=== PATIENT | male | born 1955 | race Asian ===

== ENCOUNTER 2025-03-06 07:33 | Inpatient (IN) | payer MEDICARE ==
[~2025-03-06] VITALS: Ht 165.1 cm; Wt 70.0 kg
--- NOTE | 2025-03-06 07:40 | Physician Documentation ---
History of Present Illness ~ Stated Complaint: HIGH BP Time Seen by MD: 07:38 OK to notify your PCP?: Yes Source: patient, RN/MD, EMS, RN notes reviewed, EMS notes reviewed Mode of Arrival: EMS Exam Limitations: no limitations HPI This patient has a history of high blood pressure. He has been doing well denies any recent travel no recent URIs no ear pain or tinnitus. Patient states he recently rolled his ankle and has been taking anti-inflammatories and has p retty much recovered. However he started having episodes of dizziness they would last about 15 minutes. He denied any shortness of breath palpitations or arrhythmias no chest pain or pressure. He states the episode seemed to last for about 15 minutes. Denies any recent fatigue or chest pain. 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 Did not feel well took an aspirin and called 911 where EKG was obtained showing a right bundle-branch block. Patient states he has never had any arrhythmias before and as far as he knows that is a new change. EMS arrived Accu-Chek was 105 and he was brought in for further workup and care. He denies any vertigo symptoms such as feeling drunk or on a boat his dizziness for more of a lightheadedness and elevated blood pressure. He is compliant with his medications denies any drugs or alcohol. Medication Reconciliation Allergies: Coded Allergies: No Known Allergies (Unverified , 03/06/25) Scheduled Cholecalciferol (Vitamin D), 2 TAB PO DAILY, (Reported) Febuxostat (Febuxostat), 1 TAB PO DAILY, (Reported) Losartan Potassium (Losartan Potassium), 1 TAB PO DAILY, (Reported) Rosuvastatin Calcium (Rosuvastatin Calcium), 1 TAB PO DAILY, (Reported) Vitamin B Complex (Vitamin B Complex), 1 CAP PO DAILY, (Reported) Past Medical History Past Medical History: High Cholesterol, Hypertension, Gout Past Surgical History: no surgical history Smoking Status: Never smoker Alcohol Use: None Review of Systems All Other Systems at this time: Reviewed and Negative ROS As stated above in the HPI, otherwise all systems are reviewed and negative. Physical Exam Vital Signs: RN Vital Signs have been reviewed: Yes Physical Exam General: The patient is well developed, well nourished, nontoxic appearing and is in no acute distress. Appears younger than stated age Skin: Yoder, warm and dry with no rashes. HEENT: Head was normocephalic and atraumatic. Eyes - pupils equal, round, reactive to light and accommodation. Extraocular movements were intact. Horizontal nystagmus was noted. Conjunctivae were nonicteric. The mouth and oropharynx were clear with moist mucous membranes. There were no pharyngeal exudates or erythema. Neck: Supple and nontender. There was no jugular venous distention, lymphadenopathy, thyromegaly or masses. Chest: Clear to auscultation bilaterally without wheezes, rales or rhonchi. No accessory muscle use. No dullness to percussion. Heart: Rate regular and rhythmic. S1, S2. No murmurs. Palpation of the chest wall was normal. No rubs or thrills. Abdomen: Soft, nontender and nondistended. Positive bowel sounds. No guarding or rebound. No hepatosplenomegaly or palpable masses. Extremities: No cyanosis, clubbing or edema. The patient moves all extremities. Pulses were equal and symmetric. Neurologic: Motor sensory grossly intact. Horizontal nystagmus was noted Psychologic: The patient was oriented to person, place and time. The patient demonstrated appropriate judgement and insight. Progress Progress Note 1030: Dr. Cortez the hospitalist kindly put in admission orders at this time. Results/Orders Reviewed/noted all lab results: Yes Results/Orders Orders - CRUZITO PEDRAZA MD Electrocardiogram (03/06/25 07:38) Chest,Single View (03/06/25 07:41) Saline Lock (03/06/25 07:41) Monitor (03/06/25 07:41) Page Hospitalist (03/06/25 10:03) Fill Out Med Reconciliation (03/06/25 10:03) Completed Orders - CRUZITO PEDRAZA MD Electrocardiogram (03/06/25 07:38) Hs Troponin I W Calculations (03/06/25 07:38) Hs Troponin I W Calculations (03/06/25 09:38) Hs Troponin I W Calculations (03/06/25 10:38) Cbc/Diff (03/06/25 07:41) MG (03/06/25 07:41) Chest,Single View (03/06/25 07:41) BMP (03/06/25 07:41) Pt Inr (03/06/25 07:41) PTT (03/06/25 07:41) ESR (03/06/25 07:41) C-Reactive Protein (03/06/25 07:41) Meclizine Tablets (Antivert Tablet) (03/06/25 07:45) Nitroglycerin 0.2mg/Hour Patch (Nitro-Du (03/06/25 07:55) PBNP (03/06/25 07:57) D-Dimer (03/06/25 07:57) Hgb A1c (03/06/25 07:57) Vital Signs 03/06/25 03/06/25 03/06/25 03/06/25 07:38 07:48 08:20 08:24 Temp 98.1 Pulse 72 67 73 Resp 16 18 13 10 B/P (MAP) 198/90 167/105 (125) 156/84 (108) Pulse Ox 100 98 98 03/06/25 09:49 Pulse 70 Resp 21 B/P (MAP) 148/85 (106) Pulse Ox 94 Laboratory Tests Test 03/06/25 07:57 03/06/25 10:05 White Blood Count 4.0 L Red Blood Count 4.60 L Hemoglobin 15.6 Hematocrit 44.8 Mean Corpuscular Volume 97.4 Mean Corpuscular Hemoglobin 33.9 H Mean Corpuscular Hemoglobin Concent 34.9 Red Cell Distribution Width 13.1 Platelet Count 175 Mean Platelet Volume 7.4 Neutrophils (%) (Auto) 63.8 Lymphocytes (%) (Auto) 27.5 Monocytes (%) (Auto) 6.1 Eosinophils (%) (Auto) 2.1 Basophils (%) (Auto) 0.5 Neutrophils # (Auto) 2.6 Lymphocytes # (Auto) 1.1 Monocytes # (Auto) 0.2 Eosinophils # (Auto) 0.1 Basophils # (Auto) 0.0 CBC Comment Erythrocyte Sedimentation Rate 8 Prothrombin Time 10.2 INR International Normalized Ratio 1.0 Activated Partial Thromboplast Time 27 D-Dimer 4.56 H D-Dimer Comment Coagulation Comments Sodium Level 138 Potassium Level 4.3 Chloride Level 105 Carbon Dioxide Level 28.4 Anion Gap 5 L Blood Urea Nitrogen 18 Creatinine 0.99 Estimated GFR/1.73 m2 75 BUN/Creatinine Ratio 18.2 Glucose Level 111 H Hemoglobin A1c 5.6 Calcium Level 9.2 Magnesium Level 2.2 Troponin I High Sensitivity 7 6 C-Reactive Protein 0.12 Pro-B-Type Natriuretic Peptide 54 Albumin 3.8 Chemistry Comments Troponin I High Sens Percent Delta 14 Troponin I Hi Sens Absolute Change -1 Re-Evaluation Re-Evaluation #1: Progress Patient presents with dizziness not quite vertigo symptoms with does have nystagmus. Pressure is a bit elevated. He has new EKG changes. Blood pressure is elevated. Patient received aspirin nitroglycerin. Cardiac workup was started. Patient was also given a dose of meclizine. However patient also had some vague symptoms possibly related to his heart. His blood pressure is elevated. He received nitroglycerin as well and later subcu heparin after he was admitted to the hospitalist service to rule out any cardiac etiology. Unstable angina is high in the differential. Laboratory was obtained and CBC was within normal limits sed rate eight lactic acid for the chemistry was within normal limits and chemistry was within normal limits. Troponin x3 were within normal limits. Nonspecific changes in the EKG were seen. Patient was then admitted for further workup and care. hall monitor interpretation shows normal sinus rhythm heart rate 70s, no ectopy, normal, my interpretation. Pulse oximetry monitor interpretation shows normal oxygenation at 99% room air, normal, my interpretation. Re-Evaluation #2: Re-Evaluation: Unchanged Progress The case was discussed with the family who was informed in the patients case and agreed to admit the patient. 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 Cruzito Pedraza Measurements Intervals [place] Rate: 65 P: 53 WI: 169 QRS: 34 QRSD: 135 T: -5 QT: 390 QTc: 406 Interpretive Statements Incomplete analysis due to missing data in precordial lead(s) Sinus rhythm Right bundle branch block Borderline ST elevation, lateral leads Missing lead(s): V3 Electronically Signed On 03-06-2025 8:05:[address] Cruzito Pedraza Please click the below link to view image of tracing. Chest X-Ray : Additional Comments CLINICAL INFORMATION: Chest pain. TECHNIQUE: Single AP portable chest radiograph was obtained. COMPARISON: None FINDINGS: Lungs: Low lung volumes with bibasilar atelectasis, left greater than right. Superimposed consolidation in the left lung base not excluded. Cardiac: Borderline mild cardiomegaly, may be partly due to portable AP techni que. Pulmonary vasculature: Prominence of the pulmonary vasculature. Mediastinum/sarah: Unremarkable. Bones: No acute osseous abnormality identified. Other: No other significant findings. IMPRESSION: 1. Borderline mild cardiomegaly and prominence of the pulmonary vasculature, may be due to a degree of pulmonary vascular congestion in the appropriate clinical setting. 2. Bibasilar atelectasis, left greater than right. Superimposed consolidation in the left lung base not excluded. Heart Score: Heart Score Response (Comments) Value History Slightly Suspicious 0 EKG Repolarization Disturb 1 Age >65 2 Risk Factors 1 or 2 risk factors 1 Troponin Normal limit 0 Total 4 Medical Decision Making Additional info obtained from: old records Differential Dx:Considerations: Include: anemia, CVA, dehydration, dysrhythmia, electrolyte imbalance, encephalopathy, labyrinthitis, Meniere's disease, myocardial infarction, pulmonary embolus, renal failure, TIA, vertigo central, vertigo peripheral, vestibular neuronitis, other Departure Time of Disposition: 10:30 Disposition: 09 ADMITTED INPATIENT Admitted to Inpatient Unit: yes, to hospitalist Admission Level of Care: PCU with Tele Impression: Primary Impression: Dizziness Additional Impression: Accelerated hypertension Condition: Fair Referrals: NO PRIMARY CARE PROVIDER (PCP) Education Educated: Patient Educated regarding: diagnosis Signature Scribe Signature: Scribed for Cruzito Pedraza MD by Len Day . 03/06/25 11:14 Attestation: The note accurately reflects work and decisions made by me.Cruzito Pedraza MD 03/06/25 07:40 CRUZITO PEDRAZA MD Mar 06, 2025 07:40 LEN FARRIS Mar 06, 2025 09:26
--- NOTE | 2025-03-06 07:42 | ELECTROCARDIOGRAPH REPORT ---
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 Rosalina Vidal Measurements Intervals Christmas Rate: 65 P: 53 OR: 169 QRS: 34 QRSD: 135 T: -5 QT: 390 QTc: 406 Interpretive Statements Incomplete analysis due to missing data in precordial lead(s) Sinus rhythm Right bundle branch block Borderline ST elevation, lateral leads Missing lead(s): V3 Electronically Signed On 03-06-2025 8:05:[address] Rosalina Vidal Please click the below link to view image of tracing.
--- NOTE | 2025-03-06 08:04 | RADIOLOGY REPORT ---
CLINICAL INFORMATION: Chest pain. TECHNIQUE: Single AP portable chest radiograph was obtained. COMPARISON: None FINDINGS: Lungs: Low lung volumes with bibasilar atelectasis, left greater than right. Superimposed consolidati on in the left lung base not excluded. Cardiac: Borderline mild cardiomegaly, may be partly due to portable AP technique. Pulmonary vasculature: Prominence of the pulmonary vasculature. Mediastinum/sarah: Unremarkable. Bones: No acute osseous abnormality identified. Other: No other significant findings. IMPRESSION: 1. Borderline mild cardiomegaly and prominence of the pulmonary vasculature, may be due to a degree o f pulmonary vascular congestion in the appropriate clinical setting. 2. Bibasilar atelectasis, left greater than right. Superimposed consolidation in the left lung base not excluded.
[2025-03-06 08:09] LABS: MEAN PLATELET VOLUME 7.4 FL (7.4-10.4); RED CELL DISTRIBUTION WIDTH 13.1 % (11.5-14.5)
[2025-03-06 08:17] LABS: CREATININE 0.99 MG/DL (0.60-1.10); TOTAL CARBON DIOXIDE 28.4 MMOL/L (24-32); eCRCL 61 ML/MIN; eGFR 75 ML/MIN
[2025-03-06 08:20] LABS: APTT 27 SECONDS (22-32); INR 1.0 INR
[2025-03-06 09:42] LABS: PRO BRAIN NATRIURETIC PEPTIDE 54 PG/ML (0-125)
--- NOTE | 2025-03-06 10:11 | HISTORY AND PHYSICAL ---
History & Physical Providers to Chief complaint, dizziness, lightheadedness, elevated blood pressure ~ History of Present Illness Reason for Admit\Complaint: As above History of Present Illness This patient , 69 years old gentleman, has a history of high blood pressure, uncontrolled history of a right bundle jennifer block, gout, cardiomegaly, dyslipidemia, presented today to emergency department chief complaint dizziness associated with lightheadedness and elevated blood pressure and Gait disorder, unbalanced,. He has been doing well denies any recent travel no recent URIs no ear pain or tinnitus. Patient states he recently rolled his ankle and has been taking anti-inflammatories and has pretty much recovered. However he started having episodes of dizziness they would last about 15 minutes. He denied any shortness of breath palpitations or arrhythmias no chest pain or pressure. He states the episode seemed to last for about 15 minutes. Denies any recent fatigue or chest pain. 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 Did not feel well took an aspirin and called 911 where EKG was obtained showing a right bundle-branch block. Patient states he has never had any arrhythmias before and as far as he knows that is a new change. EMS arrived Accu-Chek was 105 and he was brought in for further workup and care. He denies any vertigo symptoms such as feeling drunk or on a boat his dizziness for more of a lightheadedness and elevated blood pressure. He is compliant with his medications denies any drugs or alcohol. In emergency department he was evaluated by physician was diagnosed with dizziness hypertensive emergency, and decision was made to admit patient for further evaluation and treatment, no additional complaint or concern Allergies: Coded Allergies: No Known Allergies (Unverified , 03/06/25) Active prescriptions I reviewed reconciled Home Medications Pending Past Medical History Past Medical History As in HPI Past Surgical History Surgical History Comment Cholecystectomy Past Social History Social History Comment Deny illicit drug abuse tobacco alcohol use live with the family good social support Health Maintenance Health Maintenance As above ROS ROS Constitutional : no fever , no chills, or weakness. No diaphoresis. Allergic/Immunologic, no lymphadenopathy, no hives, no skin eruptions. Eyes, no recent visual changes, no eye pain, no photophobia. Ears, nose, mouth, throat, no sore throat, no nosebleed, no ear pain. Cardiovascular, no palpitations, skipped beats, chest pain, no peripheral edema, Respiratory, no dyspnea, orthopnea, cough, hemoptysis, chest wall pain. Gastrointestinal, no abdominal pain, nausea, vomiting, constipation or diarrhea. : no dysuria, hematuria, pelvic pain, urethral d/c. Endocrine, no polyuria, polydipsia, recent unintentional weight gain or loss. Hematologic/Lymphatic, no petechiae, no enlarged lymph nodes, no bone pain. Integumentary, no rash, no skin lesions, Musculoskeletal, no muscle aches, or pain, no muscle cramps, positive for Gait disorder, unbalanced Neurological, before lightheadedness, dizziness, no headache, no syncope, no paresthesia. Psychiatric, no delusions, visual hallucinations, or hearing hallucinations. ROS - in rest is as in HPI. Exam Vitals: Vital Signs Date Time Temp Pulse Resp B/P (MAP) Pulse Ox O2 Delivery O2 Flow Rate FiO2 03/06/25 09:49 70 21 148/85 (106) 94 03/06/25 07:38 98.1 Vital signs, stable ,afebrile. Pulse Oximetry reflects adequate oxygenation. BMI is 25, weight 70 kg General: well developed, well nourished. Awake , alert, and oriented x4, resting comfortably in the bed, in no acute distress . Skin: Warm, dry, no pallor, no rash or petechiae. HEENT: Atraumatic, normocephalic, EOMI, anicteric sclera B; pink conjunctiva; PERRLA, normal oropharynx, moist oral and nasal mucosa. Tympanic membrane , nose , throat clear. Neck: Trachea midline. Supple, full range of motion, no JVD, bruit , hepatojugular reflex , lymphadenopathy or masses, or other lesions Cardiac: Regular rhythm, regular rate no murmurs, rubs, or gallops. Normal S1 and S2, no S3 noticed. PMI is normal. Respiratory: Equal breath sounds bilaterally, no tachypnea; lungs clear to auscultation bilaterally, no wheezing ,rub or rales, or crackles. Chest wall is symmetric and without deformity. No signs of trauma. Chest wall is nontender. No signs of respiratory distress. Resonance is normal upon percussion bilaterally. Gastrointestinal: Abdomen symmetric, non-distended, soft, non-tender, normal bowel sounds x4 quadrant, normoactive, no hepatosplenomegaly , no masses , no bruit, no flank pain bilaterally. No voluntary guarding, rebound, or rigidity. No tenderness to percussion. No pulsatile masses. Equal femoral pulses. No Cummings's sign or McBurney point tenderness. Back; no CVA tenderness bilaterally, no deformities. Neck and back are without deformity as well. No tenderness noted on palpation of the spinous processes. Spinous processes are midline. Cervical, thoracic, and lumbar paraspinal muscles are not tender and are without spasm. : normal external genitalia, without lesions, swelling, masses or tenderness. Musculoskeletal: Extremities, normal range of motion, non-tender, muscle strength 5/5 x 4. Negative Homans signs bilaterally on lower extremity. Distal pulses full symmetrical, no clubbing, cyanosis , edema. Neurological: Speech is clear, alert, and oriented x 4. No motor or sensory deficit, deep tendon reflexes normal, cerebellar intact. Cranial nerves II-XII intact. Psych: Alert and or appropriate, normal affect. Vascular: Good distal pulses, which are equal x4; capillary refill less than 2 seconds. Lymphatic, no lymphadenopathy. Diagnostic Data Last Recorded Lab Results: 03/06/25 0757 03/06/25 0757 Diagnostic Data: Laboratory Tests Test 03/06/25 07:57 Prothrombin Time 10.2 SECONDS (9.0-12.0) INR International Normalized Ratio 1.0 INR Activated Partial Thromboplast Time 27 SECONDS (22-32) Coagulation Comments Advance Care Planning Advanced Care plannin - 30 Minutes Additional Plan Assessment Hypertensive emergency Dizziness associated with light-headedness Gait disorder, unbalanced Cardiomegaly associated with right bundle branch block Elevated D-dimer, rule out PE, DVT Leukopenia Dyslipidemia, history of gout, Plan Echocardiography pending V/Q test pending Ultrasound bilateral lower extremity pending PT evaluation and treatment Additional lab work pending IV fluids, keep patient well hydrated euvolemic Reconciled home medications DVT gastropathy prophylaxis addressed May need cardiology evaluation Sepsis Screening Reassessment Date: Mar 06, 2025 Date of Service: Mar 06, 2025 Billing Provider: MARIELENA STRONG MD Common Visit Codes: 36906-[id number] INP/OBS CARE (HIGH) Secondary Visit Codes: 06550-[id number] CARE PLAN 30 MINUTES MARIELENA STRONG MD Mar 06, 2025 10:11
[2025-03-06] MEDS ORDERED: magnesium hydroxide 30ml (MOM) UD suspension PO PRN (10:50)
[2025-03-06] MEDS ORDERED: HYDROcodone/acetaminophen 10/325mg tab PO PRN (10:50)
[2025-03-06] MEDS ORDERED: HYDROcodone/acetaminophen 5mg/325mg tablet PO PRN (10:50)
[2025-03-06] MEDS ORDERED: bisacodyl 10mg suppository rectal RC PRN (10:50)
[2025-03-06] MEDS ORDERED: potassium Cl 40MEQ/1/2NS 520ml 520 ML IV PRN (10:50)
[2025-03-06] MEDS ORDERED: mag hydrox/Alum hydrox/simeth 30ml oral suspension PO PRN (10:50)
[2025-03-06] MEDS ORDERED: potassium Cl 20 mEq SR tablet PO PRN ×2 (10:50)
[2025-03-06] MEDS ORDERED: ondansetron/PF 4mg/2ml inj IV PRN (10:50)
[2025-03-06] MEDS ORDERED: acetaminophen 650mg rectal suppository RC PRN (10:50)
[2025-03-06] MEDS ORDERED: ondansetron 4mg rapidly disintigrating tab PO PRN (10:50)
[2025-03-06] MEDS ORDERED: magnesium Cl slow-release 64mg tablet PO PRN (10:50)
[2025-03-06] MEDS ORDERED: magnesium sulf-water 2g/50mL 50 ML IV PRN (10:50)
[2025-03-06] MEDS ORDERED: magnesium sulf-water 4G/100mL 100 ML IV PRN (10:50)
--- NOTE | 2025-03-06 11:45 | RADIOLOGY REPORT ---
EXAM: CT CT HEAD INDICATION: Dizziness; ALOC TECHNIQUE: CT of the head without intravenous contrast. Radiation Dose : 1. Head: CT Dose: CTDI volume is 63 mGy. Dose-length product is 1132 mGy*cm The dose indicators for CT are the volume Computed Tomography (CT) Dose Index (CTDIvol) and the Dose Length Product (DLP), and are measured in units of mGy and mGy-cm, respectively. These indicators are not patient dose, but values generated from the CT scanner acquisition factors. The report includes radiation exposure data for exposures received during this examination. COMPARISON: None FINDINGS: There is no evidence of acute intracranial hemorrhage, extra-axial collection, mass effect, midline s hift, herniation or hydrocephalus. The ventricles, sulci and cisterns are age appropriate. The lynn-white differentiation is intact. The visualized paranasal sinuses and mastoid air cells are clear. The surrounding soft tissues and osseous structures are unremarkable. IMPRESSION: No acute intracranial abnormality. Radiation optimization: All CT scans at this facility use at least one of these dose optimization tyler hniques: automated exposure control mA and/or kV adjustment per patient size (includes targeted exam s where dose is matched to clinical indication) or iterative reconstruction.
[2025-03-06 11:49] LABS: LEUKOCYTE ESTERASE ,URINE NEGATIVE (Neg); NITRITES, URINE NEGATIVE (Neg); OCCULT BLOOD,URINE NEGATIVE (Neg)
[2025-03-06 11:52] LABS: UA COLLECTION TYPE URINAL
--- NOTE | 2025-03-06 12:22 | RADIOLOGY REPORT ---
Procedure: CT CT CHEST ABDOMEN PELVIS 03/06/2025 11:27 AM Indication: adrenal adenoma .. Comparison Study: None Technique: Axial images were obtained and reformatted in coronal and sagittal planes. All CT scans at this medical facility are performed using dose modulation techniques as appropriate to a performed e xam including the following: Automated exposure control was utilized; adjustment of the MA and/or KV according to patient size; and use of iterative reconstruction technique. CT Dose: CTDI volume is 11. 8 mGy. Dose-length product is 828 mGy*cm FINDINGS: Lower neck: Unremarkable. Cardiomediastinal: The heart is normal in size. Aorta is normal in caliber. No mediastinal lymphadeno haylee. Lungs: No focal pulmonary opacity. No pleural effusion. No pneumothorax. Hepatobiliary: Unremarkable. Gallbladder has been removed. Spleen: Unremarkable. Pancreas: Unremarkable. Adrenal Glands: Unremarkable. tract: The kidneys are normal in size bilaterally without hydronephrosis . 1 mm nonobstructive sto ne left kidney. Small left peripelvic cysts and bilateral lower pole cortical cysts. GI tract: The stomach is grossly normal in appearance. No evidence of small bowel obstruction. The la rge bowel is unremarkable. Appendix not seen Lymphatics: No mesenteric, retroperitoneal or periportal lymphadenopathy. Vasculature: The abdominal aorta is normal in in caliber. Pelvic Organs: Unremarkable. Bones/soft tissues: No acute abnormality. Other: None. IMPRESSION: 1. No acute abnormality in the chest, abdomen or pelvis. 2. No signs of adrenal adenoma on this exam 3. Incidental note made of tiny nonobstructive left renal stone and small bilateral cortical cysts
[2025-03-06 12:30] LABS: PHOSPHORUS 2.6 MG/DL (2.3-4.5)
[2025-03-06 12:49] LABS: URINE AMPHETAMINE SCREEN NEGATIVE (Neg); URINE BARBITUATE SCREEN NEGATIVE (Neg); URINE BENZODIAZEPINES SCREEN NEGATIVE (Neg); URINE CANNABINOID SCREEN NEGATIVE (Neg); URINE COCAINE SCREEN NEGATIVE (Neg); URINE METHADONE SCREEN NEGATIVE (Neg); URINE OPIATE SCREEN NEGATIVE (Neg); URINE PHENCYCLIDINE SCREEN NEGATIVE (Neg)
[2025-03-06 14:11] VITALS: BP 103/69; PULSE 78; RESP 12; TEMP 98.9; O2SAT 93
[2025-03-06] MEDS ORDERED: ROSU5TAB51 PO (15:55)
[2025-03-06] MEDS ORDERED: FEBU40TA6 PO (15:56)
[2025-03-06] MEDS ORDERED: LOSA50TA64 PO (15:59)
[2025-03-06] MEDS ORDERED: CHOL20004 PO (16:04)
[2025-03-06] MEDS ORDERED: VITA1CAP PO (16:05)
--- NOTE | 2025-03-06 17:09 | CARDIOLOGY REPORT ---
APPROVED REPORT EXAM: Comprehensive 2D, Doppler, and color-flow Echocardiogram. Patient Location: ED1 Blood Pressure: 148/85 mmHg Heart Rate: 68 bpm Rhythm: NSR Indications Hypertension RBBB No electro plater No previous echo 2D Dimensions LA Diam3.3 cm IVSd 1.1 (0.7-1.1cm) LVDd 4.2 cm PWd 1.1 (0.7-1.1cm) IVSs 1.5 (0.8-1.2cm) LVDs 2.6 (2.5-4.0cm) Aortic Root(2D) 3.5 cm PWs 1.6 (0.8-1.2cm) LVOT Diameter 2.13 (1.8-2.4cm) LVEF(%) 67.3 (>50%) IVC 13.01 mmFS (%) 37.0 % SV 52.8 ml CO 3.8 L/min M-Mode Dimensions MV EPSS 0.7 (<0.5cm) Aortic Valve AoV Peak Kosta. 134.7 cm/s AoV VTI 27.3 cm AO Peak GR. 7.3 mmHg AO Mean GR. 4 mmHg LVOT VTI 21.55 cm LVOT Peak Kosta. 124.3 cm/s ISHA(VTI)/BSA 2.81 cm2/m2 ISHA (VTI) 2.81 cm2 Mitral Valve MV E Velocity 52.2 cm/s MV Peak Gr. 1 mmHg MV DECEL TIME 216 ms MV A Velocity 63.3 cm/s MV PHT 68 ms E/A Ratio 0.8 MVA (PHT) 3.24 cm2 MV VMax52.9 cm/s TDI Medial E' P. V 7.27 cm/s E/Medial E' 7.2 Tricuspid Valve TR P. Velocity 240 cm/s RAP ESTIMATE 10 mmHg TR Peak Gr. 23 mmHg RVSP 33 mmHg Pulmonary Vein S1 Velocity 52.2 cm/s D2 Velocity 33.0 cm/s PVa Yrxduxio68.5 cm/s PVa [id number] msec LEFT VENTRICLE Normal LV size and wall thickness. Overall systolic function is normal. LVEF is 65%. RIGHT VENTRICLE RV appears mildly dilated with normal contractility. RVSP is estimated at 33 mmHG. ATRIA The left atrium size is normal. AORTIC VALVE Trileaflet AV appears sclerotic without stenosis. Trace insufficiency. MITRAL VALVE MV is thickened with mild annular thickening and no stenosis. Trace mitral regurgitation. TRICUSPID VALVE The tricuspid valve is normal in structure. Trace tricuspid regurgitation. PULMONIC VALVE The pulmonary valve is normal in structure. Mild pulmonic regurgitation. GREAT VESSELS The aortic root is normal in size. The IVC is normal in size and collapses >50% with inspiration. PERICARDIUM There is no pericardial effusion. Other Information Study Quality: Adequate
[2025-03-06 18:00] VITALS: BP 114/69; PULSE 70; RESP 14; TEMP 98; O2SAT 95
[2025-03-06] MEDS: K and/or MAG REPLACEMENT MC SCH (18:48)
[2025-03-06] MEDS: ringers solution, lacted 1,000 ML IV ONE (19:12)
[2025-03-06] MEDS: docusate sod 100mg capsule PO SCH (20:52)
[2025-03-06] MEDS: heparin, porcine 5000 units/ml vial SQ SCH (20:53)
[2025-03-06 22:00] VITALS: BP 104/62; PULSE 58; RESP 14; TEMP 97.2; O2SAT 100
[2025-03-07 04:59] LABS: MEAN PLATELET VOLUME 7.5 FL (7.4-10.4); RED CELL DISTRIBUTION WIDTH 13.1 % (11.5-14.5)
[2025-03-07 05:20] LABS: CHOL/HDL RATIO 3.9 (0.00-4.99); CREATININE 0.86 MG/DL (0.60-1.10); LDL CHOLESTEROL 84 MG/DL (50-100); TOTAL CARBON DIOXIDE 27.3 MMOL/L (24-32); eCRCL 71 ML/MIN; eGFR 88 ML/MIN
[2025-03-07 06:00] VITALS: BP 131/70; PULSE 58; RESP 15; TEMP 98; O2SAT 94
[2025-03-07 08:00] VITALS: RESP 15; O2SAT 94
[2025-03-07] MEDS: pantoprazole 40mg Tablet.DR PO SCH (08:40)
--- NOTE | 2025-03-07 08:50 | VASCULAR REPORT ---
VASC VL VENOUS HISTORY: dvt COMPARISON: None TECHNIQUE: Duplex doppler evaluation of the deep venous system of the lower extremity from the common femoral veins, superficial femoral vein, great saphenous vein, deep femoral vein, popliteal vein, an d calf veins, including color doppler and spectral/pulsed waveform analysis, was performed. FINDINGS: Right: - Common femoral vein: Compressible - Deep femoral vein: Compressible - Femoral vein: Compressible - Popliteal vein: Compressible - Posterior tibial vein: Waveforms present - Peroneal vein: Waveforms present - Other: Nothing Left: - Common femoral vein: Compressible - Deep femoral vein: Compressible - Femoral vein: Compressible - Popliteal vein: Compressible - Posterior tibial vein: Waveforms present - Peroneal vein: Waveforms present - Other: Nothing IMPRESSION: No right or left lower extremity deep venous thrombosis.
--- NOTE | 2025-03-07 11:56 | RADIOLOGY REPORT ---
CLINICAL INFORMATION: Lightheaded. Elevated D-dimer. TECHNIQUE: 42 mCi of aerosolized Tc99m DTPA was used for the ventilation portion of the exam. Territory Development Manager ior ventilation imaging was obtained. 5.9 mCi of technetium 99m MAA was used for the perfusion portio n of the exam. Imaging was obtained in multiple planes of projection. COMPARISON: Chest radiograph dated 03/06/2025. FINDINGS: Perfusion imaging shows no mismatched segmental or subsegmental segmental defects. Ventilation imaging shows no defects. There is normal washout. IMPRESSION: Normal exam. No evidence of pulmonary embolism.
[2025-03-07 14:24] VITALS: BP 124/77; PULSE 62; RESP 13; TEMP 98.6; O2SAT 96
--- NOTE | 2025-03-07 17:58 | PROGRESS NOTE ---
Daily Progress Note Providers to CC Still feels dizzy, improving,unbalanced gait is improving ~ Central Line/PICC still needed: No Oneill-Non Protocol Oneill Indications Met/Not Met: F/C Indications Not Met Antibiotic Timeout Antibiotic Ordered?: No MRSA Education MRSA Education Provided to pt: No Subjective As above Objective Vital Signs Date Time Temp Pulse Resp B/P (MAP) Pulse Ox O2 Delivery O2 Flow Rate FiO2 03/07/25 14:24 98.6 62 13 124/77 (93) 96 Room Air Vital signs, stable ,afebrile. Pulse Oximetry reflects adequate oxygenation. General: well developed, well nourished. Awake , alert, and oriented x4, resting comfortably in the bed, in no acute distress . Skin: Warm, dry, no pallor, no rash or petechiae. HEENT: Atraumatic, normocephalic, EOMI, anicteric sclera B; pink conjunctiva; PERRLA, normal oropharynx, moist oral and nasal mucosa. Tympanic membrane , nose , throat clear. Neck: Trachea midline. Supple, full range of motion, no JVD, bruit , hepatojugular reflex , lymphadenopathy or masses, or other lesions Cardiac: Regular rhythm, regular rate no murmurs, rubs, or gallops. Normal S1 and S2, no S3 noticed. PMI is normal. Respiratory: Equal breath sounds bilaterally, no tachypnea; lungs clear to auscultation bilaterally, no wheezing ,rub or rales, or crackles. Chest wall is symmetric and without deformity. No signs of trauma. Chest wall is nontender. No signs of respiratory distress. Resonance is normal upon percussion bilaterally. Gastrointestinal: Abdomen symmetric, non-distended, soft, non-tender, normal bowel sounds x4 quadrant, normoactive, no hepatosplenomegaly , no masses , no bruit, no flank pain bilaterally. No voluntary guarding, rebound, or rigidity. No tenderness to percussion. No pulsatile masses. Equal femoral pulses. No Cummings's sign or McBurney point tenderness. Back; no CVA tenderness bilaterally, no deformities. Neck and back are without deformity as well. No tenderness noted on palpation of the spinous processes. Spinous processes are midline. Cervical, thoracic, and lumbar paraspinal muscles are not tender and are without spasm. : normal external genitalia, without lesions, swelling, masses or tenderness. Musculoskeletal: Extremities, normal range of motion, non-tender, muscle strength 5/5 x 4. Negative Homans signs bilaterally on lower extremity. Distal pulses full symmetrical, no clubbing, cyanosis , edema. Neurological: Speech is clear, alert, and oriented x 4. Dizziness is improving, gait unbalanced, is improving, No motor or sensory deficit, deep tendon reflexes normal, cerebellar intact. Cranial nerves II-XII intact. Psych: Alert and or appropriate, normal affect. Vascular: Good distal pulses, which are equal x4; capillary refill less than 2 seconds. Lymphatic, no lymphadenopathy. Result Diagram: 03/07/2542803/07/25428 Coagulation Studies Laboratory Tests Test 03/06/25 07:57 Prothrombin Time 10.2 SECONDS (9.0-12.0) INR International Normalized Ratio 1.0 INR Activated Partial Thromboplast Time 27 SECONDS (22-32) D-Dimer 4.56 MG/L FEU (0-0.50) H D-Dimer Comment Coagulation Comments Problem\Assessment\Plan Assessment Hypertensive emergency Dizziness associated with light-headedness Gait disorder, unbalanced Cardiomegaly associated with right bundle branch block Elevated D-dimer, ruled out PE, DVT Leukopenia Dyslipidemia, history of gout, Plan Echocardiography completed MRI of the head pending V/Q completed Ultrasound bilateral lower extremity no DVT PT evaluation and treatment Additional lab work pending IV fluids, keep patient well hydrated euvolemic Reconciled home medications DVT gastropathy prophylaxis addressed Sepsis Screening Reassessment Date: Mar 07, 2025 Date of Service: Mar 07, 2025 Billing Provider: MARIELENA STRONG MD Common Visit Codes: 43254-[id number] INP/OBS CARE(HIGH) MARIELENA STRONG MD Mar 07, 2025 17:58
[2025-03-07 18:00] VITALS: BP 141/69; PULSE 59; RESP 14; TEMP 98.5; O2SAT 97
--- NOTE | 2025-03-07 20:18 | [facility] CONSULT REPORT ---
[facility] Procedure Note [facility] Procedure Note Consult [facility] Note # Demographics Consult Type: General Neurology Patient Location: Inpatient First Name: Hoang Last Name: Sarah Date of : 1955 Age: 69 Gender: Male Facility: [facility] Time of Initial Page (): 03/07/2025 19:47 Time of Return Call (): 03/07/2025 19:47 # HPI Chief Complaint: - dizziness History: 69-year-old male, presents with episodes of dizziness and an uneasy feeling in his head that started a couple of days ago. The patient reports that the first episode occurred on Tuesday morning when he got up to use the toilet. He experienced a "weird feeling" in his head, described as mild dizziness, lasting for 5-10 minutes. He attempted to move to his bed but didn't quite make it, as he was using crutches due to a sprained ankle. He managed to sit on the bed and put his feet up, which alleviated the symptoms. A couple of days later, he experienced a similar but less severe episode that persisted. The patient denies feeling like the room was spinning or experiencing weakness or numbness on one side of the body. He mentions that his hands started hurting, which made him nervous. # Scores Time of exam and NIHSS (): 03/07/2025 20:05 Level of Consciousness 1a: [0] = Alert; keenly responsive LOC Questions 1b: [0] = Answers both questions correctly LOC Commands 1c: [0] = Performs both tasks correctly Best Gaze 2: [0] = Normal Visual 3: [0] = No visual loss Facial Palsy 4: [0] = Normal symmetrical movements Motor Arm Left 5a: [0] = No drift Motor Arm Right 5b: [0] = No drift Motor Leg Left 6a: [0] = No drift Motor Leg Right 6b: [0] = No drift Limb Ataxia 7: [0] = Absent Sensory 8: [0] = Normal Best Language 9: [0] = No aphasia Dysarthria 10: [0] = Normal Extinction and Inattention 11: [0] = No abnormality NIHSS Total: 0 # ROS Additional: - complete review of systems otherwise negative # PMH-FH-SH Past Medical History: - hypertension - hyperlipidemia - coronary artery disease Social History: - non-smoker - non-drinker - no drugs Allergies: - NKDA # Data Time Head CT personally read by me ([place] Time): 03/07/2025 20:[address]: - no bleed - per radiologist read # Assessment Impression: - Vertigo - Suspect peripheral vertigo but cannot rule out a central etiology for the vert igo such as an acute infarct. Therefore, I would recommend getting an MRI Brain without to r/o an acute infarct. # Plan Thrombolytic/Intervention: NOT IV Thrombolysis or IA Intervention candidate Thrombolytic Exclusion (< 3 hour window): - NIHSS = 0 Thrombolytic Exclusion: > 4.5 hours Imaging: (urgency: routine): - MRI Brain without contrast - MR Angiogram Head without contrast - MR Angiogram Neck with contrast Other: - If patient has any neurological deterioration please call me back immediately - would not pursue stroke work-up if MRI is negative Additional Recommendations: - Can try Meclizine or Valium PRN for symptomatic control - IF vertigo is persistent, recommend vestibular therapy # Demographics First Name: Hoang Last Name: Sarah Facility: [facility] Neuro Consult Order placed for: Yes MARICRUZ GAMBINO MD Mar 07, 2025 20:18
[2025-03-07 22:00] VITALS: BP 126/71; PULSE 62; RESP 14; TEMP 97.2; O2SAT 94
[2025-03-08 05:36] LABS: CREATININE 0.88 MG/DL (0.60-1.10); TOTAL CARBON DIOXIDE 28.4 MMOL/L (24-32); eCRCL 69 ML/MIN; eGFR 86 ML/MIN
[2025-03-08 05:37] LABS: MEAN PLATELET VOLUME 7.7 FL (7.4-10.4); RED CELL DISTRIBUTION WIDTH 13.1 % (11.5-14.5)
[2025-03-08 06:00] VITALS: BP 140/74; PULSE 62; RESP 15; TEMP 97.4; O2SAT 95
[2025-03-08] MEDS: cholecalciferol (vitamin D3) 1,000 unit (25mcg) tablet PO SCH (08:00)
[2025-03-08] MEDS: febuxostat 40mg tablet PO SCH (08:00)
[2025-03-08] MEDS: vitamin B comp w/Vit. C tab 1 TAB TABLET PO SCH (09:34)
[2025-03-08 10:00] VITALS: BP 140/80; PULSE 74; RESP 17; TEMP 97.8; O2SAT 95
[2025-03-08] MEDS ORDERED: cholecalciferol (vitamin D3) 1,000 unit (25mcg) tablet PO SCH (11:49)
--- NOTE | 2025-03-08 13:19 | RADIOLOGY REPORT ---
EXAM: MR MRI HEAD CLINICAL HISTORY: dizzines COMPARISON: CT CT HEAD on DOS: 03/06/25 TECHNIQUE: Multiplanar, multisequence magnetic resonance imaging of the brain was performed without intravenous contrast. FINDINGS: Mild frontal lobe predominant brain atrophy. Single focus of right centrum semiovale T2/FLAIR hyperin tensity which may represent chronic lacunar infarct versus chronic small-vessel ischemic change. No hemorrhages, masses, mass effect, midline shift, herniation or cytotoxic edema following a large v ascular territory. No intra-axial or extra-axial fluid collections. No evidence of hydrocephalus. T he basal cisterns are patent. The vascular flow voids are maintained. Tortuosity of the basilar and l eft vertebral arteries with mass effect of the left vertebral artery on the ventral medulla The pituitary gland, sella and parasellar regions are unremarkable. The cerebellar tonsils are in nor mal position. The cerebellum is unremarkable. On the thin axial T2 images of the posterior fossa, no CP angle masses noted. Bilateral internal dom tory canals unremarkable. The visualized inner ear structures unremarkable bilaterally. Bilateral lens replacement. Otherwise, orbits and globes are unremarkable. Minimal mucoperiosteal th ickening of the ethmoid air cells. The remainder of the paranasal sinuses and mastoids are clear. The re are No worrisome calvarial lesions. IMPRESSION: No evidence of acute intracranial abnormalities.
--- NOTE | 2025-03-08 13:44 | RADIOLOGY REPORT ---
EXAM: MR MRA HEAD HISTORY: verigo COMPARISON: MRI of the brain dated 03/08/2025. TECHNIQUE: Noncontrast 3D [id number] gradient echo MRA images of the [id number] were performed. 3D OR P rotational images were obtained. FINDINGS/IMPRESSION: No significant stenosis or aneurysmal dilatation about the t[place] of [place].
--- NOTE | 2025-03-08 13:45 | RADIOLOGY REPORT ---
PROCEDURE: MR MRA NECK INDICATION: verigo Exam Date: 03/08/2025 12:40 PM COMPARISON: None TECHNIQUE: MRA neck without intravenous contrast. 3D image postprocessing was performed on a dedicated workstation and images were used for interpretat ion and reporting. FINDINGS: Limited by motion. MRA neck: The visualized thoracic aortic arch and proximal great vessels are unremarkable. There is no evidenc e of hemodynamically significant stenosis involving the bilateral common and internal carotid arterie s. The cervical vertebral arteries are patent. There is no evidence of dissection. IMPRESSION: 1. Limited by motion. No evidence of hemodynamically significant cervical stenosis or dissection. HS:Y
--- NOTE | 2025-03-08 17:26 | DISCHARGE SUMMARY ---
Discharge Summary Providers to CC ~ no new complaint today, feels fine, asking to be discharged home Discharge Summary Assessment Hypertensive emergency Dizziness associated with light-headedness Gait disorder, unbalanced Cardiomegaly associated with right bundle branch block Elevated D-dimer Leukopenia Dyslipidemia, history of gout, Admission Diagnosis: HTN emergency Admission Diagnosis Comment: Hypertensive emergency Dizziness associated with light-headedness Gait disorder, unbalanced Cardiomegaly associated with right bundle branch block Elevated D-dimer Leukopenia Dyslipidemia, history of gout, Hospital Course DATE OF ADMISSION: March 06, 2025 DATE OF DISCHARGE: March 08, 2025 Discharge Diagnosis\Comment: Hypertensive emergency Dizziness associated with light-headedness Gait disorder, unbalanced Cardiomegaly associated with right bundle branch block Elevated D-dimer Leukopenia Dyslipidemia, history of gout, Operations\Procedures: Non Consultants: neurologist Complications: Non Condition on DC: Stable Discharge Summary: This patient , 69 years old gentleman, has a history of high blood pressure, uncontrolled history of a right bundle jennifer block, gout, cardiomegaly, dyslipidemia, presented today to emergency department chief complaint dizziness associated with lightheadedness and elevated blood pressure and Gait disorder, unbalanced,. He has been doing well denies any recent travel no recent URIs no ear pain or tinnitus. Patient states he recently rolled his ankle and has been taking anti-inflammatories and has pretty much recovered. However he started having episodes of dizziness they would last about 15 minutes. He denied any shortness of breath palpitations or arrhythmias no chest pain or pressure. He states the episode seemed to last for about 15 minutes. Denies any recent fatigue or chest pain. He does not have a history of the gamemaster. Did not feel well took an aspirin and called 911 where EKG was obtained showing a right bundle-branch block. Patient states he has never had any arrhythmias before and as far as he knows that is a new change. EMS arrived Accu-Chek was 105 and he was brought in for further workup and care. He denies any vertigo symptoms such as feeling drunk or on a boat his dizziness for more of a lightheadedness and elevated blood pressure. He is compliant with his medications denies any drugs or alcohol. In emergency department he was evaluated by physician was diagnosed with dizziness hypertensive emergency, and decision was made to admit patient for further evaluation and treatment, no additional complaint or concern admission patient was extensively evaluated and treated including consulted by virtual neurologist, his condition is improved today he has no complaint, asking to be discharged home, he will be discharged in stable condition, medication reconciled, follow-up with PCP Neurology cardiology in two days, return to emergency department condition worsens, today on physical exam, Vital signs, stable ,afebrile. Pulse Oximetry reflects adequate oxygenation. General: well developed, well nourished. Awake , alert, and oriented x4, resting comfortably in the bed, in no acute distress . Skin: Warm, dry, no pallor, no rash or petechiae. HEENT: Atraumatic, normocephalic, EOMI, anicteric sclera B; pink conjunctiva; PERRLA, normal oropharynx, moist oral and nasal mucosa. Tympanic membrane , nose , throat clear. Neck: Trachea midline. Supple, full range of motion, no JVD, bruit , hepatojugular reflex , lymphadenopathy or masses, or other lesions Cardiac: Regular rhythm, regular rate no murmurs, rubs, or gallops. Normal S1 and S2, no S3 noticed. PMI is normal. Respiratory: Equal breath sounds bilaterally, no tachypnea; lungs clear to auscultation bilaterally, no wheezing ,rub or rales, or crackles. Chest wall is symmetric and without deformity. No signs of trauma. Chest wall is nontender. No signs of respiratory distress. Resonance is normal upon percussion bilaterally. Gastrointestinal: Abdomen symmetric, non-distended, soft, non-tender, normal bowel sounds x4 quadrant, normoactive, no hepatosplenomegaly , no masses , no bruit, no flank pain bilaterally. No voluntary guarding, rebound, or rigidity. No tenderness to percussion. No pulsatile masses. Equal femoral pulses. No Cummings's sign or McBurney point tenderness. Back; no CVA tenderness bilaterally, no deformities. Neck and back are without deformity as well. No tenderness noted on palpation of the spinous processes. Spinous processes are midline. Cervical, thoracic, and lumbar paraspinal muscles are not tender and are without spasm. : normal external genitalia, without lesions, swelling, masses or tenderness. Musculoskeletal: Extremities, normal range of motion, non-tender, muscle strength 5/5 x 4. Negative Homans signs bilaterally on lower extremity. Distal pulses full symmetrical, no clubbing, cyanosis , edema. Neurological: Speech is clear, alert, and oriented x 4. No motor or sensory deficit, deep tendon reflexes normal, cerebellar intact. Cranial nerves II-XII intact. Psych: Alert and or appropriate, normal affect. Vascular: Good distal pulses, which are equal x4; capillary refill less than 2 seconds. Lymphatic, no lymphadenopathy. *Problems/Diagnosis: (1) Dizziness Status: Acute (2) Accelerated hypertension Status: Acute Total Time Spent on D/C: > 30 Minutes Date of Service: Mar 08, 2025 Billing Provider: MARIELENA STRONG MD Common Visit Codes: 12455-PRD/OBS DISCH DAY >30min MARIELENA STRONG MD Mar 08, 2025 17:26
== END 2025-03-08 15:45 | disposition home or self-care (01) | DRG 305 ==
LOC: ER 07:35 → ED HOLD 11:03 → ORTHO 4S 13:48
PROVIDERS: ADMIT Family Medicine; ATTEND Family Medicine
PROC: CB121ZZ Planar Nuclear Medicine Imaging of Lungs and Bronchi using Technetium 99m (Tc-99m) (ICD-10-PCS; principal; 2025-03-06)
DX: I16.1 Hypertensive emergency (principal); H81.393 Other peripheral vertigo, bilateral; E78.00 Pure hypercholesterolemia, unspecified; I10 Essential (primary) hypertension; Z20.822 Contact with and (suspected) exposure to COVID-19; I45.10 Unspecified right bundle-branch block; D72.819 Decreased white blood cell count, unspecified; Z90.49 Acquired absence of other specified parts of digestive tract
CPT/HCPCS: 36415; 70450; 70544; 70547; 70551; 71045; 71250; 74176; 78582; 80048; 80053; 80061; 80305; 81003; 82550; 83036; 83605; 83735; 83880; 84100; 84443; 84484; 85025; 85379; 85610; 85651; 85730; 86140; 87040; 87081; 87811; 93005; 93306; 93970; 96372; 97116; 97161; 97530; 99285; A9539; A9540; G0378; J1644; J2060; J7042; J7120; J8597